=== PATIENT | male | born 1955 | race Two or more races ===

== ENCOUNTER 2021-06-16 05:50 | Day surgery (SDC) | payer OTHER ==
[~2021-06-16 05:50] MED LIST: EFFEXOR XR75 MG PO; EXELON; KEPPRA PO; LIPITOR20 MG PO; NAMENDA XR28 MG PO
[2021-06-16] MEDS ORDERED: PERCOCET 5-3251 EACH PO (10:52)
[2021-06-16] MEDS ORDERED: NEURONTIN600 M1 PO (10:53)
[2021-06-16] MEDS ORDERED: CIPRO500 MG PO (10:53)
[2021-06-16] MEDS ORDERED: POLY119PG PO (10:53)
== END 2021-06-16 14:15 | disposition home or self-care (01) ==
LOC: CIR.AMB 05:50
PROVIDERS: ATTEND Surgery
DX: K43.0 Incisional hernia with obstruction, without gangrene (principal); K40.20 Bilateral inguinal hernia, without obstruction or gangrene, not specified as recurrent; Z20.822 Contact with and (suspected) exposure to COVID-19

== ENCOUNTER 2021-08-18 06:09 | Day surgery (SDC) | payer OTHER ==
[~2021-08-18 06:09] MED LIST changes: +CIPRO500 MG PO; +NAMENDA XR28 MG; +NEURONTIN600 M1 PO; +PERCOCET 5-3251 EACH PO; +POLY119PG PO
== END 2021-08-18 18:15 | disposition home or self-care (01) ==
LOC: CIR.AMB 06:09
PROVIDERS: ATTEND Surgery
DX: K40.90 Unilateral inguinal hernia, without obstruction or gangrene, not specified as recurrent (principal); Z20.822 Contact with and (suspected) exposure to COVID-19

== ENCOUNTER 2023-09-25 18:56 | Emergency (ER) | payer OTHER ==
[~2023-09-25] VITALS: Ht 185.4 cm; Wt 95.3 kg
[2023-09-25 20:57] LABS: HEMATOCRIT 38.7 % (39.0-48.0); HEMOGLOBIN 13.1 g/dL (13-16.00); MEAN CORPUSCULAR HEMOGLOBIN 30.2 pg (27.00-32.0); MEAN CORPUSCULAR HGB CONC 33.9 g/dl (32.0-36.0); PLATELET COUNT 200 K/uL (150-450); RED BLOOD COUNT 4.35 M/uL (4.00-6.00)
[2023-09-25 21:48] LABS: CALCIUM 9.3 mg/dL (8.5-10.1); CREATININE SERUM 0.87 mg/dL (0.70-1.30); GFR 86.75; POTASSIUM 4.06 mEq/L (3.5-5.1)
== END 2023-09-26 02:06 ==
LOC: ER 18:56
PROVIDERS: Nurse Practitioner Family
DX: S09.8XXA Other specified injuries of head, initial encounter (principal); S50.312A Abrasion of left elbow, initial encounter; W06.XXXA Fall from bed, initial encounter; Y93.89 Activity, other specified; Y92.092 Bedroom in other non-institutional residence as the place of occurrence of the external cause; G30.8 Other Alzheimer's disease; F02.80 Dementia in other diseases classified elsewhere, unspecified severity, without behavioral disturbance, psychotic disturbance, mood disturbance, and anxiety; M19.90 Unspecified osteoarthritis, unspecified site; E78.00 Pure hypercholesterolemia, unspecified; Z85.46 Personal history of malignant neoplasm of prostate

== ENCOUNTER 2023-12-04 15:38 | Emergency (ER) | payer OTHER ==
[~2023-12-04] VITALS: Ht 177.8 cm; Wt 74.4 kg
[2023-12-04] MEDS ORDERED: LORAZEPAM0.5 MG PO (16:09)
[2023-12-04] MEDS ORDERED: LEVETIRACETAM500 MG PO (16:10)
[2023-12-04] MEDS ORDERED: FAMOTIDINE40 MG PO (16:10)
[2023-12-04] MEDS ORDERED: RIVASTIGMINE4.5 MG PO (16:10)
[2023-12-04] MEDS ORDERED: OLANZAPINE ODT5 MG PO (16:11)
[2023-12-04 16:44] LABS: HEMATOCRIT 35.7 % (39.0-48.0); HEMOGLOBIN 12.2 g/dL (13-16.00); MEAN CELL VOLUME 92.1 fL (80.0-100.00); MEAN CORPUSCULAR HEMOGLOBIN 31.4 pg (27.00-32.0); MEAN CORPUSCULAR HGB CONC 34.1 g/dl (32.0-36.0); PLATELET COUNT 325 K/uL (150-450); RED BLOOD COUNT 3.87 M/uL (4.00-6.00); RED CELL DISTRIBUTION WIDTH 15.9 % (11.5-14.5)
[2023-12-04 16:58] LABS: INR 1.09; PROTHROMBIN TIME 11.4 SECONDS (9.0-11.5)
[2023-12-04 17:19] LABS: ALBUMIN 3.4 gm/dL (3.4-5.0); BILIRUBIN TOTAL 0.83 mg/dL (0.3-1.2); CALCIUM 9.2 mg/dL (8.5-10.1); CREATININE SERUM 0.83 mg/dL (0.70-1.30); GFR 91.59; GLOBULINA 2.3 G/DL (2.4-3.5); POTASSIUM 4.1 mEq/L (3.5-5.1); TOTAL PROTEIN 5.7 gm/dL (6.4-8.2); TSH 1.22 uIU/mL (0.358-3.74)
[2023-12-04] MEDS ORDERED: LevETIRAcetam 500 MG/5 ML VIAL IV ONE (20:45)
[2023-12-04] MEDS ORDERED: LORazepam 2 MG/ML VIAL IM ONE (20:45)
[2023-12-04 22:40] LABS: ABG PH 7.431 (7.35-7.45); ABG PO2 85.1 mmHg (80-100); ABG pCO2 46.5 mmHg (35-45); BICARBONATE 30.2 mmol/l (23-25); SaO2 96.9 %; Tco2 31.7 mmol/l
[2023-12-04 22:41] LABS: allen test SATISFACTORY; o2 21 %; puncture site RADIAL LEFT
== END 2023-12-04 22:37 | disposition home or self-care (01) ==
LOC: ER 15:38
PROVIDERS: General Practice
DX: G40.802 Other epilepsy, not intractable, without status epilepticus (principal); E78.00 Pure hypercholesterolemia, unspecified; G30.8 Other Alzheimer's disease; F02.80 Dementia in other diseases classified elsewhere, unspecified severity, without behavioral disturbance, psychotic disturbance, mood disturbance, and anxiety; Z20.822 Contact with and (suspected) exposure to COVID-19
CPT/HCPCS: 36415; 70450; 71045; 71250; 82803; 93005; 96365; 96372; 99284; J3490

== ENCOUNTER 2024-04-11 23:08 | Emergency (ER) | payer OTHER ==
[~2024-04-11] VITALS: Ht 177.8 cm; Wt 74.4 kg
[~2024-04-11 23:08] MED LIST changes: +FAMOTIDINE40 MG PO; +LEVETIRACETAM500 MG PO; +LORAZEPAM0.5 MG PO; +OLANZAPINE ODT5 MG PO; +RIVASTIGMINE4.5 MG PO
[2024-04-11] MEDS ORDERED: MEMANTINE H2 MG/1 ML PO (23:18)
[2024-04-11] MEDS ORDERED: TAMS0.4C (23:19)
[2024-04-11] MEDS ORDERED: ATORVASTATIN CA10 MG (23:19)
[2024-04-11] MEDS ORDERED: RIVASTIGMINE1.5 MG (23:19)
[2024-04-12] MEDS ORDERED: 0.9 % SODIUM CHLORIDE 1,000 ML IV STA (01:28)
[2024-04-12] MEDS ORDERED: LevETIRAcetam 500 MG/5 ML VIAL IV STA (01:29)
[2024-04-12 02:20] LABS: HEMATOCRIT 36.8 % (39.0-48.0); HEMOGLOBIN 12.7 g/dL (13-16.00); MEAN CELL VOLUME 89.1 fL (80.0-100.00); MEAN CORPUSCULAR HEMOGLOBIN 30.8 pg (27.00-32.0); MEAN CORPUSCULAR HGB CONC 34.5 g/dl (32.0-36.0); PLATELET COUNT 246 K/uL (150-450); RED BLOOD COUNT 4.13 M/uL (4.00-6.00); RED CELL DISTRIBUTION WIDTH 14.7 % (11.5-14.5)
[2024-04-12 02:45] LABS: INR 1.14; PARTIAL THROMBOPLASTIN TIME 35.9 SECONDS (22.0-34.0); PROTHROMBIN TIME 11.9 SECONDS (9.0-11.5)
[2024-04-12 02:49] LABS: ALBUMIN 3.3 gm/dL (3.4-5.0); BILIRUBIN TOTAL 0.92 mg/dL (0.3-1.2); CALCIUM 9.5 mg/dL (8.5-10.1); CREATININE SERUM 0.92 mg/dL (0.70-1.30); GFR 81.33; GLOBULINA 3.5 G/DL (2.4-3.5); POTASSIUM 4.33 mEq/L (3.5-5.1); TOTAL PROTEIN 6.8 gm/dL (6.4-8.2)
== END 2024-04-12 08:19 | disposition home or self-care (01) ==
LOC: ER 23:08
DX: R56.9 Unspecified convulsions (principal)
CPT/HCPCS: 36415; 70450; 96365; 96366; 99284; J3490; J7030

== ENCOUNTER 2024-09-24 18:24 | Emergency (ER) | payer OTHER ==
[~2024-09-24] VITALS: Ht 188 cm; Wt 65.8 kg
[~2024-09-24 18:24] MED LIST changes: +ATORVASTATIN CA10 MG; +MEMANTINE H2 MG/1 ML PO; +RIVASTIGMINE1.5 MG; +TAMS0.4C
[2024-09-24 23:11] VITALS: BP 119/71; O2SAT 98
== END 2024-09-24 23:57 | disposition home or self-care (01) ==
LOC: ER 18:24
DX: S09.8XXA Other specified injuries of head, initial encounter (principal); W19.XXXA Unspecified fall, initial encounter; Y93.89 Activity, other specified; Y92.128 Other place in nursing home as the place of occurrence of the external cause; Y99.8 Other external cause status; G30.9 Alzheimer's disease, unspecified; F02.80 Dementia in other diseases classified elsewhere, unspecified severity, without behavioral disturbance, psychotic disturbance, mood disturbance, and anxiety

== ENCOUNTER 2024-12-29 13:24 | Emergency (ER) | payer OTHER ==
[~2024-12-29] VITALS: Ht 180.3 cm; Wt 68.0 kg
[2024-12-29] MEDS ORDERED: 0.9 % SODIUM CHLORIDE 500 ML IV ONE (15:15)
[2024-12-29 16:53] LABS: HEMATOCRIT 40.1 % (39.0-48.0); HEMOGLOBIN 13.5 g/dL (13-16.00); MEAN CELL VOLUME 88.8 fL (80.0-100.00); MEAN CORPUSCULAR HEMOGLOBIN 29.9 pg (27.00-32.0); MEAN CORPUSCULAR HGB CONC 33.6 g/dl (32.0-36.0); PLATELET COUNT 270 K/uL (150-450); RED BLOOD COUNT 4.52 M/uL (4.00-6.00); RED CELL DISTRIBUTION WIDTH 13.1 % (11.5-14.5)
[2024-12-29 17:24] LABS: ALBUMIN 3.1 gm/dL (3.4-5.0); BILIRUBIN TOTAL 0.52 mg/dL (0.3-1.2); CALCIUM 9.2 mg/dL (8.5-10.1); CREATININE SERUM 0.7 mg/dL (0.70-1.30); GFR 111.17; GLOBULINA 2.8 G/DL (2.4-3.5); POTASSIUM 4.03 mEq/L (3.5-5.1); TOTAL PROTEIN 5.9 gm/dL (6.4-8.2)
== END 2024-12-29 20:47 ==
LOC: ER 13:24
PROVIDERS: General Practice
DX: H61.22 Impacted cerumen, left ear (principal); H92.10 Otorrhea, unspecified ear
CPT/HCPCS: 36415; 70487; 96365; 96366; 99284; J7042; Q9965